=== PATIENT | male | born 1985 | race African-American/Black ===

== ENCOUNTER 2019-10-29 13:33 | Emergency (ER) | payer SELFPAY ==
[~2019-10-29] VITALS: Ht 182.9 cm; Wt 86.0 kg
[2019-10-29] MEDS ORDERED: IV NORMAL SALINE 1000ML BAG 1,000 ML IV ONE ×2 (14:00→16:45)
[2019-10-29] MEDS ORDERED: ONDANSETRON PF 4 MG/2 ML VIAL. IVP ONE (14:00)
[2019-10-29 14:27] LABS: BASO % 1 % (0-3); EOS # 0.2 x10^3/uL (0.0-0.7); EOS % 5 % (0-3); HEMATOCRIT 43.5 % (39.0-53.0); HEMOGLOBIN 14.3 g/dL (13.0-17.5); LYMPH # 1.7 x10^3/uL (1.0-4.8); LYMPH % 35 % (24-48); MEAN CORPUSCULAR HEMOGLOBIN 25 pg (25-35); MEAN CORPUSCULAR HGB CONC 33 g/dL (31-37); MEAN CORPUSCULAR VOLUME 76 fL (79-100); MONO # 0.4 x10^3/uL (0.0-1.1); MONO % 8 % (0-9); NEUT # 2.6 x10^3/uL (1.8-7.7); NEUT % 52 % (31-73); PLATELET COUNT 247 x10^3/uL (140-400); RED BLOOD COUNT 5.74 x10^6/uL (4.30-5.70); RED CELL DISTRIBUTION WIDTH 14.4 % (11.5-14.5)
[2019-10-29 14:47] LABS: CALCIUM 8.4 mg/dL (8.5-10.1); GFR 104.8; POTASSIUM 4.1 mmol/L (3.5-5.1)
[2019-10-29 14:54] LABS: ALBUMIN 3.7 g/dL (3.4-5.0); TOTAL BILIRUBIN 0.8 mg/dL (0.2-1.0); TOTAL PROTEIN 7.4 g/dL (6.4-8.2)
[2019-10-29] MEDS ORDERED: CONTRAST GIVEN. MC PRN (15:30)
[2019-10-29] MEDS ORDERED: IOHEXOL 300 MG/ML 100ML VIAL. IV ONE (15:30)
[2019-10-29 15:38] LABS: BILIRUBIN,URINE NEGATIVE (NEG); CLARITY,URINE CLEAR; COLOR,URINE YELLOW; NITRITE,URINE NEGATIVE (NEG); PH,URINE 7.5 (<5.0-8.0); PROTEIN,URINE NEGATIVE (NEG-TRACE)
[2019-10-29 15:53] LABS: SQUAMOUS EPITHELIAL CELL,UR FEW /LPF
[2019-10-29 15:54] LABS: BACTERIA,URINE 0 /HPF (0-FEW); RBC,URINE OCC /HPF (0-2); WBC,URINE OCC /HPF (0-4)
--- NOTE | 2019-10-29 16:26 | PHYS DOC ---
Past Medical History Past Medical History: Other Additional Past Medical Histor: " I was told I have a heart branch problem." Past Surgical History: No Surgical History Smoking Status: Current Some Day Smoker Alcohol Use: Occasionally General Adult EDM: Chief Complaint: ABDOMINAL PAIN HPI: HPI: Patient is a 34 year old male present to ER today for evaluation of nausea, vomiting, diarrhea and abdominal pain since early this morning. Patient said he had many episodes diarrhea when he woke up this morning, he was trying to get ready to go to work but he started having cramping all over so he came here for evaluation. Patient denies any blood in his stool, denies any fever. Review of Systems: Review of Systems: Constitutional: Denies fever or chills. [] Eyes: Denies change in visual acuity. [] HENT: Denies nasal congestion or sore throat. [] Respiratory: Denies cough or shortness of breath. [] Cardiovascular: Denies chest pain or edema. [] GI: POSITIVE FOR Abdominal pain, nausea, vomiting AND diarrhea. [] : Denies dysuria. [] Musculoskeletal: Denies back pain or joint pain. [] Integument: Denies rash. [] Neurologic: Denies headache, focal weakness or sensory changes. [] Endocrine: Denies polyuria or polydipsia. [] Lymphatic: Denies swollen glands. [] Psychiatric: Denies depression or anxiety. [] Heart Score: Risk Factors: Risk Factors: DM, Current or recent (<one month) smoker, HTN, HLP, family history of CAD, obesity. Risk Scores: Score 0 - 3: 2.5% MACE over next 6 weeks - Discharge Home Score 4 - 6: 20.3% MACE over next 6 weeks - Admit for Clinical Observation Score 7 - 10: 72.7% MACE over next 6 weeks - Early Invasive Strategies Current Medications: Current Medications Medications (Trade) Dose Ordered Sig/Art Start Time Stop Time Status Last Admin Dose Admin Info (CONTRAST GIVEN -- Rx MONITORING) 1 each PRN DAILY PRN 10/29/19 15:30 10/31/19 15:29 Iohexol (Omnipaque 300 Mg/ml) 75 ml 1X ONCE 10/29/19 15:30 10/29/19 15:31 DC 10/29/19 14:11 75 ML Ondansetron HCl (Zofran) 4 mg 1X ONCE 10/29/19 14:00 10/29/19 14:01 DC 10/29/19 15:13 4 MG Sodium Chloride 1,000 ml @ 1,000 mls/hr 1X ONCE 10/29/19 14:00 10/29/19 14:59 DC 10/29/19 15:00 1,000 MLS/HR Allergies: Allergies: Allergies Coded Allergies Type Severity Reaction Last Updated Verified No Known Drug Allergies 10/29/19 No Physical Exam: PE: Constitutional: Well developed, well nourished, no acute distress, non-toxic appearance. [] HENT: Normocephalic, atraumatic, bilateral external ears normal, oropharynx moist, no oral exudates, nose normal. [] Eyes: PERRLA, EOMI, conjunctiva normal, no discharge. [] Neck: Normal range of motion, no tenderness, supple, no stridor. [] Cardiovascular:Heart rate regular rhythm, no murmur [] Lungs & Thorax: Bilateral breath sounds clear to auscultation [] Abdomen: Bowel sounds normal, soft, THERE IS DIFFUSE tenderness TO PALPATION, NO GUARDING, no masses, no pulsatile masses. [] Skin: Warm, dry, no erythema, no rash. [] Back: No tenderness, no CVA tenderness. [] Extremities: No tenderness, no cyanosis, no clubbing, ROM intact, no edema. [] Neurologic: Alert and oriented X 3, normal motor function, normal sensory function, no focal deficits noted. [] Psychologic: Affect normal, judgement normal, mood normal. [] Current Patient Data: Labs: Laboratory Tests Test 10/29/19 13:47 10/29/19 15:25 White Blood Count 5.0 x10^3/uL (4.0-11.0) Red Blood Count 5.74 x10^6/uL (4.30-5.70) H Hemoglobin 14.3 g/dL (13.0-17.5) Hematocrit 43.5 % (39.0-53.0) Mean Corpuscular Volume 76 fL (79-100) L Mean Corpuscular Hemoglobin 25 pg (25-35) Mean Corpuscular Hemoglobin Concent 33 g/dL (31-37) Red Cell Distribution Width 14.4 % (11.5-14.5) Platelet Count 247 x10^3/uL (140-400) Neutrophils (%) (Auto) 52 % (31-73) Lymphocytes (%) (Auto) 35 % (24-48) Monocytes (%) (Auto) 8 % (0-9) Eosinophils (%) (Auto) 5 % (0-3) H Basophils (%) (Auto) 1 % (0-3) Neutrophils # (Auto) 2.6 x10^3/uL (1.8-7.7) Lymphocytes # (Auto) 1.7 x10^3/uL (1.0-4.8) Monocytes # (Auto) 0.4 x10^3/uL (0.0-1.1) Eosinophils # (Auto) 0.2 x10^3/uL (0.0-0.7) Basophils # (Auto) 0.0 x10^3/uL (0.0-0.2) Sodium Level 140 mmol/L (136-145) Potassium Level 4.1 mmol/L (3.5-5.1) Chloride Level 105 mmol/L (98-107) Carbon Dioxide Level 25 mmol/L (21-32) Anion Gap 10 (6-14) Blood Urea Nitrogen 15 mg/dL (8-26) Creatinine 1.0 mg/dL (0.7-1.3) Estimated GFR (Cockcroft-Gault) 104.8 BUN/Creatinine Ratio 15 (6-20) Glucose Level 73 mg/dL (70-99) Calcium Level 8.4 mg/dL (8.5-10.1) L Total Bilirubin 0.8 mg/dL (0.2-1.0) Aspartate Amino Transferase (AST) 20 U/L (15-37) Alanine Aminotransferase (ALT) 26 U/L (16-63) Alkaline Phosphatase 64 U/L (46-116) Total Protein 7.4 g/dL (6.4-8.2) Albumin 3.7 g/dL (3.4-5.0) Albumin/Globulin Ratio 1.0 (1.0-1.7) Lipase 113 U/L (73-393) Urine Collection Type Unknown Urine Color Yellow Urine Clarity Clear Urine pH 7.5 (<5.0-8.0) Urine Specific Tranquillity 1.020 (1.000-1.030) Urine Protein Negative mg/dL (NEG-TRACE) Urine Glucose (UA) Negative mg/dL (NEG) Urine Ketones (Stick) Negative mg/dL (NEG) Urine Blood Negative (NEG) Urine Nitrite Negative (NEG) Urine Bilirubin Negative (NEG) Urine Urobilinogen Dipstick 1.0 mg/dL (0.2 mg/dL) Urine Leukocyte Esterase Negative (NEG) Urine RBC Occ /HPF (0-2) Urine WBC Occ /HPF (0-4) Urine Squamous Epithelial Cells Few /LPF Urine Bacteria 0 /HPF (0-FEW) Urine Mucus Marked /LPF Laboratory Tests 10/29/19 13:47 Laboratory Tests 10/29/19 13:47 Vital Signs: Vital Signs Date Time Temp Pulse Resp B/P (MAP) Pulse Ox O2 Delivery O2 Flow Rate FiO2 10/29/19 13:47 98.1 58 16 137/60 (85) 99 Room Air 98.1 EKG: EKG: [] Radiology/Procedures: Radiology/Procedures: [][facility] [address] [place] [address] IMAGING REPORT Signed PATIENT: BLANCA LEWIS ACCOUNT: [id number] : 1985 LOCATION: ER AGE: 34 SEX: M EXAM STATUS: REG ER ORD. PHYSICIAN: TALYA LAMBERT DO REASON: lower abdominal pain since this MORNING PROCEDURE: CT ABD PELV W/ IV CONTRST ONLY Study: CT abdomen/pelvis with intravenous contrast Indication: Lower abdominal pain. Comparison: None. Technique: Helical CT imaging performed of the abdomen and pelvis after the intravenous administration of 75 cc Omnipaque 300 contrast. Sagittal and coronal reformats were obtained. One or more of the following individualized dose reduction techniques were utilized for this examination: 1. Automated exposure control 2. Adjustment of the mA and/or kV according to patient size 3. Use of iterative reconstruction technique. Findings: Chest: Unremarkable. Liver: Subcentimeter low-attenuation focus on image 23 series 2 is statistically most likely to be benign such as a cyst or hemangioma. No follow-up imaging is needed per consensus recommendation based on imaging criteria. Gallbladder/Biliary Tree: Unremarkable. Pancreas: Unremarkable. Spleen: Unremarkable. Adrenal Glands: Unremarkable. Kidneys/Ureters/Bladder: Unremarkable kidneys and ureters. There appears to be increased density along the dependent aspect of the urinary bladder, image 78 series 2, but this is less conspicuous on the sagittal reformatted images. Reproductive Organs: Within normal limits. Colon: Within normal limits. Appendix: Normal. Small Bowel: Nonobstructed. Stomach: Unremarkable. Vasculature: Unremarkable. Lymph Nodes: Within normal limits. Peritoneum and Body Wall: No free fluid or gas. Symmetric muscular bulk. Bones: No acute or aggressive osseous process. Miscellaneous: None. Impression: On the axial images there appears to be thin increased density along the dependent aspect of the urinary bladder however this could be artifactual and is less conspicuous on the sagittal reformatted images. Some layering debris within the bladder is a less likely consideration but as deemed necessary consider correlation with urinalysis. Otherwise unremarkable abdomen/pelvis. Electronically signed by: XIOMY FRANCO MD (10/29/2019 4:40 PM) [id number] DICTATED and SIGNED BY: XIOMY FRANCO MD DATE: 10/29/19 1640 Course & Med Decision Making: Course & Med Decision Making Pertinent Labs and Imaging studies reviewed. (See chart for details) Patient is a 34-year-old male who was evaluated in the ER due to nausea vomiting, diarrhea, abdominal pain, CT scan did not show any acute problem his lab work was normal. Patient will be discharged home, he will need to follow-up with his family doctor as needed. Eladia Disclaimer: Eladia Disclaimer: This electronic medical record was generated, in whole or in part, using a voice recognition dictation system. Departure Departure Impression: Primary Impression: Gastroenteritis Disposition: 01 HOME, SELF-CARE Condition: IMPROVED Referrals: NO PCP (PCP) PLEASE CALL YOUR FAMILY DOCTOR FOR FOLLOW UP NEXT WEEK. Patient Instructions: Viral Gastroenteritis Additional Instructions: Thank you for visiting our Emergency Department. We appreciate you trusting us with your care. If any additional problems come up don't hesitate to return to visit us. Please follow up with your primary care provider so they can plan additional care if needed and know about the problem that you had. If symptoms worsen come back to the Emergency Department. Any concerning symptoms that start such as chest pain, shortness of air, weakness or numbness on one side of the body, running high fevers or any other concerning symptoms return to the ER. Justicifation of Admission Dx: Justifications for Admission: Justification of Admission Dx: N/A TALYA LAMBERT DO Oct 29, 2019 16:26
--- NOTE | 2019-10-29 16:43 | RAD ---
Study: CT abdomen/pelvis with intravenous contrast Indication: Lower abdominal pain. Comparison: None. Technique: Helical CT imaging performed of the abdomen and pelvis after the intravenous administration of 75 cc Omnipaque 300 contrast. Sagittal and coronal reformats were obtained. One or more of the following individualized dose reduction techniques were utilized for this examination: 1. Automated exposure control 2. Adjustment of the mA and/or kV according to patient size 3. Use of iterative reconstruction technique. Findings: Chest: Unremarkable. Liver: Subcentimeter low-attenuation focus on image 23 series 2 is statistically most likely to be benign such as a cyst or hemangioma. No follow-up imaging is needed per consensus recommendation based on imaging criteria. Gallbladder/Biliary Tree: Unremarkable. Pancreas: Unremarkable. Spleen: Unremarkable. Adrenal Glands: Unremarkable. Kidneys/Ureters/Bladder: Unremarkable kidneys and ureters. There appears to be increased density along the dependent aspect of the urinary bladder, image 78 series 2, but this is less conspicuous on the sagittal reformatted images. Reproductive Organs: Within normal limits. Colon: Within normal limits. Appendix: Normal. Small Bowel: Nonobstructed. Stomach: Unremarkable. Vasculature: Unremarkable. Lymph Nodes: Within normal limits. Peritoneum and Body Wall: No free fluid or gas. Symmetric muscular bulk. Bones: No acute or aggressive osseous process. Miscellaneous: None. Impression: On the axial images there appears to be thin increased density along the dependent aspect of the urinary bladder however this could be artifactual and is less conspicuous on the sagittal reformatted images. Some layering debris within the bladder is a less likely consideration but as deemed necessary consider correlation with urinalysis. Otherwise unremarkable abdomen/pelvis. Electronically signed by: XIOMY FRANCO MD (10/29/2019 4:40 PM) [id number]
[2019-10-29 17:10] VITALS: BP 132/78
== END 2019-10-29 17:13 | disposition home or self-care (01) ==
LOC: ER 13:33
DX: K52.9 Noninfective gastroenteritis and colitis, unspecified (principal); R11.2 Nausea with vomiting, unspecified; R10.9 Unspecified abdominal pain; F17.200 Nicotine dependence, unspecified, uncomplicated
CPT/HCPCS: 36415; 74177; 80053; 81001; 83690; 85025; 96361; 96374; 99285; J2405; J7030; Q9967

== ENCOUNTER 2020-04-14 15:40 | Emergency (ER) | payer SELFPAY ==
[~2020-04-14] VITALS: Ht 182.9 cm; Wt 93.2 kg
[2020-04-14 16:14] VITALS: BP 160/72
--- NOTE | 2020-04-14 17:13 | PHYS DOC ---
Past Medical History Past Medical History: Other Additional Past Medical Histor: " I was told I have a heart branch problem." Past Surgical History: No Surgical History Smoking Status: Never Smoker Alcohol Use: Occasionally General Adult EDM: Chief Complaint: COUGH HPI: HPI: Patient is a 35 year old Male who presents with cough, chills, nasal congestion for the last 2 weeks. He states he was coughing so hard today that he began getting dizzy. He states he has not been around anybody else that is been sick that he knows of but he does go to work. He states he does not think he has been running a fever. Patient denies nausea, vomiting, diarrhea, loss of taste loss of smell, travel, abdominal pain, chest pain, shortness of breath, headache. He states he tested negative 4 days ago. Patient states he does have a lot of nasal congestion. Review of Systems: Review of Systems: Constitutional: Denies fever or chills. [] Eyes: Denies change in visual acuity. [] HENT: + nasal congestion or denies sore throat. [] Respiratory: +cough or denies shortness of breath. [] Cardiovascular: Denies chest pain or edema. [] GI: Denies abdominal pain, nausea, vomiting, bloody stools or diarrhea. [] : Denies dysuria. [] Musculoskeletal: Denies back pain or joint pain. [] Integument: Denies rash. [] Neurologic: Denies headache, focal weakness or sensory changes. + Dizzy while coughing today [] Endocrine: Denies polyuria or polydipsia. [] Lymphatic: Denies swollen glands. [] Psychiatric: Denies depression or anxiety. [] Heart Score: Risk Factors: Risk Factors: DM, Current or recent (<one month) smoker, HTN, HLP, family history of CAD, obesity. Risk Scores: Score 0 - 3: 2.5% MACE over next 6 weeks - Discharge Home Score 4 - 6: 20.3% MACE over next 6 weeks - Admit for Clinical Observation Score 7 - 10: 72.7% MACE over next 6 weeks - Early Invasive Strategies Allergies: Allergies: Allergies Coded Allergies Type Severity Reaction Last Updated Verified No Known Drug Allergies 10/29/19 No Physical Exam: PE: Constitutional: Well developed, well nourished, no acute distress, non-toxic appearance. [] HENT: Normocephalic, atraumatic, bilateral external ears normal, oropharynx moist, no oral exudates, nose normal. [] Eyes: PERRLA, EOMI, conjunctiva normal, no discharge. [] Neck: Normal range of motion, no tenderness, supple, no stridor. [] Cardiovascular:Heart rate regular rhythm, no murmur [] Lungs & Thorax: Bilateral breath sounds clear to auscultation [] Abdomen: Bowel sounds normal, soft, no tenderness, no masses, no pulsatile masses. [] Skin: Warm, dry, no erythema, no rash. [] Back: No tenderness, no CVA tenderness. [] Extremities: No tenderness, no cyanosis, no clubbing, ROM intact, no edema. [] Neurologic: Alert and oriented X 3, normal motor function, normal sensory function, no focal deficits noted. [] Psychologic: Affect normal, judgement normal, mood normal. Normal physical exam [] Current Patient Data: Vital Signs: Vital Signs Date Time Temp Pulse Resp B/P (MAP) Pulse Ox O2 Delivery O2 Flow Rate FiO2 04/14/20 16:14 97.8 65 18 160/72 (101) 95 Room Air 97.8 EKG: EKG: [] Radiology/Procedures: Radiology/Procedures: [] Impression: [facility] [address] [place] [address] IMAGING REPORT Signed PATIENT: BLANCA LEWIS ACCOUNT: [id number] : 1985 LOCATION: ER AGE: 35 SEX: M EXAM STATUS: REG ER ORD. PHYSICIAN: HECTOR ROSAS APRN REASON: COUGH PROCEDURE: PORTABLE CHEST 1V PORTABLE CHEST 1V History: Reason: COUGH / Spl. Instructions: / History: Comparison: None. Findings: No consolidation or pleural effusion. Normal heart size. No pneumothorax. Calcified right lower lung pulmonary nodule, likely prior granulomatous disease. Impression: 1. No acute cardiopulmonary process. Electronically signed by: Tasha Holman DO (04/14/2020 5:25 PM) [facility] DICTATED and SIGNED BY: TASHA HOLMAN DO DATE: 04/14/20 [id number] 0 Course & Med Decision Making: Course & Med Decision Making Pertinent Labs and Imaging studies reviewed. (See chart for details) COVID-19 CRITERIA: The patient was evaluated during the global COVID-19 pandemic, and that diagnosis was suspected/considered upon their initial presentation. Their evaluation, treatment and testing was consistent with current guidelines for patients who present with complaints or symptoms that may be related to COVID-19. See HPI. Lungs are clear all station all lobes. Vital signs are within normal limits. Afebrile. Speaks in full complete sentences. Ambulatory with a steady gait. Skin pink warm and dry. Patient is tested for Covid again. Patient will be sent home with a Medrol Dosepak and azithromycin. If he tested -4 days ago this is likely not Covid and more of a sinusitis. States has been eating and drinking appropriately. Alert and oriented x4. [] Dragon Disclaimer: Dragon Disclaimer: This electronic medical record was generated, in whole or in part, using a voice recognition dictation system. COVID-19 Patient Risks: Age 65 or older: No Sign of co-morbidity: No Exp to person + for COVID: No Exp to PUI: No Travel from affected area: No Lower respiratory symptoms: Yes Fever: No Other: No PPE Use: Full PPE with N95 mask or PAPR: Yes Departure Departure Impression: Primary Impression: Person under investigation for COVID-19 Additional Impressions: Cough Nasal congestion Disposition: 01 DC HOME SELF CARE/HOMELESS Condition: STABLE Referrals: NO PCP (PCP) Patient Instructions: Cough, Adult, Sinusitis Additional Instructions: Take medication as prescribed and with food. Drink plenty of fluids. Take ibuprofen or Tylenol for any pain. You have been tested for or diagnosed with COVID-19. It is an infection caused by a new type of coronavirus. COVID-19 will cause cold-like or mild flu symptoms in most. It can cause more severe symptoms like problems breathing in some. There is no treatment for COVID-19. The body will clear the infection over time. Self-care will help to ease discomfort. Steps to Take: Self-Care Rest as needed. Healthy habits may help you feel better. Steps include: Choose healthy foods including fruits and vegetables. Drink water throughout the day. Get plenty of sleep each night. If you smoke, try to quit. It may ease breathing. Avoid alcohol. Keep Others Healthy The virus can spread to others. Droplets are released every time you sneeze or cough. The droplets can get into the mouth, nose, or eyes of people near you and lead to infection. To lower the chances of spreading COVID-19 to others: Stay at home until your doctor has said it is safe to leave. If you tested positive this will mean staying isolated until both of the following are true: At least 7 days have passed since the start of illness. You are free of fever for at least 72 hours without the use of medicine. During this time: - Avoid public areas, events, or transportation. Do not return to work or school until your doctor has said it is safe to do so. - Call ahead if you need to go to a medical center. Let them know you may have COVID-19. It will help them guide you where to go. They may also ask you to wear a facemask when you come to the office. - If you call for emergency medical services, let them know you may have COVID- 19. While at home: - Try to avoid close contact with others. Stay about 6 feet away. - If possible, spend most of your time in a separate room from others. - Use a face mask if you will be in close contact with others such as sharing a room or vehicle. - Have someone wipe down common surfaces in the home. Use household bookkeeping assistant every day on areas like doorknobs, counters, or sinks. - Cough or sneeze into a tissue. Throw the tissue away right after use. If a tissue is not available, cough or sneeze into your elbow. - Wash your hands often. Wash them after sneezing or coughing. Use soap and water and wash for at least 20 seconds. Alcohol based hand catch basin cleaner can be used if soap and water is not available. - Do not prepare food for others. Avoid sharing personal items like forks, spoons, or toothbrushes. - Avoid close contact with pets while you are sick. There is no evidence of the virus passing to pets. This is a safety step until more is known about this virus. Isolation can be frustrating. Social interaction can help. Keep in touch with friends and family through phone and tech options. You can still interact with others in your home, just keep a safe distance of about 6 feet. Follow-up: Your doctors office will check in with you to see if there are any changes in your health. You may be asked to keep track of symptoms to share with them. They will also let you know when you are clear to be in public again. Problems to Look Out For: Contact your doctor if your recovery is not going as you expect. Get emergency care if you have problems such as: - Trouble breathing - Nonstop chest pain or pressure - Changes in awareness, confusion, or problems waking - Lips or face have bluish color - Worsening of symptoms If you think you have an emergency, call for emergency medical services right away. As taken from [facility] Azithromycin (AZITHROMYCIN TABLET) 250 Mg Tablet 1 PKG PO UD for 5 Days, #6 TAB 0 Refills 2 the first day followed by 1 for days 2-5 Prov: HECTOR ROSAS APRN 04/14/20 Methylprednisolone (MEDROL) 4 Mg Tab.ds.pk 1 PKG PO UD, #1 PKG Prov: HECTOR ROSAS APRN 04/14/20 HECTOR ROSAS APRN Apr 14, 2020 17:13
--- NOTE | 2020-04-14 17:28 | RAD ---
PORTABLE CHEST 1V History: Reason: COUGH / Spl. Instructions: / History: Comparison: None. Findings: No consolidation or pleural effusion. Normal heart size. No pneumothorax. Calcified right lower lung pulmonary nodule, likely prior granulomatous disease. Impression: 1. No acute cardiopulmonary process. Electronically signed by: Suresh Carney DO (04/14/2020 5:25 PM) [facility] [place]
[2020-04-14] MEDS ORDERED: AZIT250T6 PO (17:50)
[2020-04-14] MEDS ORDERED: METH4TAB2 PO (17:50)
--- NOTE | 2020-04-16 13:31 | NUR ---
IP: Informed pt of negative COVID results. Pt verbalized understanding.
== END 2020-04-14 18:02 | disposition home or self-care (01) ==
LOC: ER 15:40
DX: R05 Cough (principal); R09.81 Nasal congestion; Z20.828 Contact with and (suspected) exposure to other viral communicable diseases; R42 Dizziness and giddiness; R68.83 Chills (without fever)
CPT/HCPCS: 71045; 99284; C9803; U0003

== ENCOUNTER 2020-11-01 14:52 | Emergency (ER) | payer SELFPAY ==
[~2020-11-01] VITALS: Ht 182.9 cm; Wt 94.6 kg
[~2020-11-01 14:52] MED LIST: AZIT250T6 PO; METH4TAB2 PO
--- NOTE | 2020-11-01 15:53 | RAD ---
XR HAND_RIGHT 3 VIEWS History: Reason: R hand pain between thumb and index finger,denies injury / Spl. Instructions: / His tory: Technique: 3 views right hand Comparison: None. Findings: Normal alignment. No fracture. Soft tissues unremarkable. No radiopaque foreign body. Impression: 1. No acute osseous abnormality. Electronically signed by: Suresh Carney DO (11/01/2020 3:51 PM) [id number]
[2020-11-01] MEDS ORDERED: NAPR500T8 PO (16:02)
--- NOTE | 2020-11-01 16:02 | ED.ADGEN ---
Past Medical History Past Medical History: Other Additional Past Medical Histor: " I was told I have a heart branch problem." Past Surgical History: No Surgical History Smoking Status: Never Smoker Alcohol Use: Occasionally General Adult EDM: Chief Complaint: HAND PROBLEM HPI: HPI: Patient is a 35 year old AA male who presents to the emergency department with complaints of pain in his right hand between his thumb and his index finger. Patient reports he has previously injured this area. He denies any recent fall or known injury. Patient reports that he lifts a lot of heavy things at work. He currently denies any numbness, tingling, or weakness of the affected hand. Patient states he is dominantly right-handed. He currently rates the pain a 7 out of 10 on pain scale, he denies any alleviating factors the pain is worse with movement and palpation. Review of Systems: Review of Systems: Complete ROS is negative unless otherwise noted in HPI. Allergies: Allergies: Allergies Coded Allergies Type Severity Reaction Last Updated Verified No Known Drug Allergies 11/01/20 No Physical Exam: PE: See Above Constitutional: Well developed, well nourished, no acute distress, non-toxic appearance. [] HENT: Normocephalic, atraumatic, bilateral external ears normal, nose normal. [] Eyes: PERRLA, EOMI, conjunctiva normal, no discharge. [] Neck: Normal range of motion, no stridor. [] Cardiovascular:Heart rate regular rhythm Lungs & Thorax: Respirations even and unlabored, no retractions, no respiratory distress Abdomen: soft, no tenderness Skin: Warm, dry, no erythema, no rash. [] Extremities: Right hand: Tenderness to palpation of the proximal right thumb without obvious deformity, sensation intact, no crepitus, no no cyanosis, ROM intact, no edema. [] Neurologic: Alert and oriented X 3, normal motor, normal sensory, no focal deficits noted. [] Psychologic: Affect normal, judgement normal, mood normal. [] Current Patient Data: Vital Signs: Vital Signs Date Time Temp Pulse Resp B/P (MAP) Pulse Ox O2 Delivery O2 Flow Rate FiO2 11/01/20 16:21 71 16 130/71 (90) 100 Room Air 11/01/20 14:54 98.2 98.2 EKG: EKG: [] Heart Score: C/O Chest Pain: No Risk Scores: Score 0 - 3: 2.5% MACE over next 6 weeks - Discharge Home Score 4 - 6: 20.3% MACE over next 6 weeks - Admit for Clinical Observation Score 7 - 10: 72.7% MACE over next 6 weeks - Early Invasive Strategies Radiology/Procedures: Radiology/Procedures: PROCEDURE: HAND RIGHT 3V XR HAND_RIGHT 3 VIEWS History: Reason: R hand pain between thumb and index finger,denies injury / Spl. Instructions: / History: Technique: 3 views right hand Comparison: None. Findings: Normal alignment. No fracture. Soft tissues unremarkable. No radiopaque foreign body. Impression: 1. No acute osseous abnormality. Electronically signed by: Suresh Carney DO (11/01/2020 3:51 PM) [id number][] Course & Med Decision Making: Course & Med Decision Making Pertinent Labs and Imaging studies reviewed. (See chart for details) [][] Patients Care and treatment plan provided by ER Nurse Practitioner. I was available for consult. Patient's chart reviewed. Eladia Disclaimer: Eladia Disclaimer: This electronic medical record was generated, in whole or in part, using a voice recognition dictation system. Departure Departure Impression: Primary Impression: Pain in right hand Disposition: 01 HOME / SELF CARE / HOMELESS Condition: STABLE Referrals: RIDGE CORBETT MD Patient Instructions: Hand Injuries, [id number] Additional Instructions: Fill prescription(s) and use as directed. Recommend application of ice, elevation, and rest of affected extremity. Activity as tolerated. Follow-up with Dr. Corbett if symptoms persist, return to the ER if your symptoms worsen. Scripts Naproxen (NAPROXEN) 500 Mg Tablet. 1 TAB PO BID for 10 Days, #20 TAB 0 Refills Prov: MATT SAMUEL APRN 11/01/20 MATT SAMUEL APRN Nov 01, 2020 16:02 YAMIL SHEIKH DO Nov 05, 2020 18:24
[2020-11-01 16:21] VITALS: BP 130/71
== END 2020-11-01 16:21 | disposition home or self-care (01) ==
LOC: ER 14:52
DX: M79.641 Pain in right hand (principal)
CPT/HCPCS: 73130; 99283